=== PATIENT | male | born 1995 | race Caucasian/White ===

== ENCOUNTER 2023-09-21 08:35 | Outpatient (CLI) | payer OTHER, SELFPAY | END 2023-09-21 08:36 | disposition home or self-care (01) | PROVIDERS: Visit Provider Family Medicine | DX: I10 Essential (primary) hypertension (principal); L70.9 Acne, unspecified; Z76.89 Persons encountering health services in other specified circumstances; E78.00 Pure hypercholesterolemia, unspecified; Z00.00 Encounter for general adult medical examination without abnormal findings; L65.9 Nonscarring hair loss, unspecified | CPT/HCPCS: 80048; 80061; 84443 ==